=== PATIENT | female | born 1965 | race Caucasian/White ===

== ENCOUNTER 2019-04-09 17:36 | Emergency (ER) | payer MEDICARE, OTHER ==
[~2019-04-09] VITALS: Ht 160 cm; Wt 90.9 kg
[2019-04-09] MEDS ORDERED: LEVO25TA9 PO (18:02)
[2019-04-09] MEDS ORDERED: RISP1 PO (18:02)
[2019-04-09] MEDS ORDERED: KETOROLAC TROMETHAMINE 10 MG TABLET PO ONE (18:45)
[2019-04-09] MEDS ORDERED: MORPHINE SULFATE 4 MG/ML SYRINGE IM ONE (19:45)
[2019-04-09] MEDS ORDERED: ONDANSETRON HCL 4 MG/2 ML VIAL IM ONE (19:45)
[2019-04-09 22:10] VITALS: BP 143/90
== END 2019-04-09 22:10 | disposition home or self-care (01) ==
LOC: EMS 17:37
DX: S82.841A Displaced bimalleolar fracture of right lower leg, initial encounter for closed fracture (principal); E03.9 Hypothyroidism, unspecified; X50.1XXA Overexertion from prolonged static or awkward postures, initial encounter; Y93.01 Activity, walking, marching and hiking; Y92.89 Other specified places as the place of occurrence of the external cause; Y99.8 Other external cause status
CPT/HCPCS: 29515; 73590; 73610; 96372; 99283; J2270; J2405